=== PATIENT | female | born 1965 | race Caucasian/White ===

== ENCOUNTER 2017-10-05 13:38 | Day surgery (SDC) | payer OTHER ==
[~2017-10-05] VITALS: Ht 162.6 cm; Wt 88.5 kg
[~2017-10-05 13:38] MED LIST: EFFEXOR75 MG PO; GLUCOPHAGE500 MG PO; LEXAPRO20 MG PO; LYRICA25 MG PO; ULTRAM50 MG PO
== END 2017-10-05 14:54 | disposition home or self-care (01) ==
LOC: PAIN 13:38 → SDC 14:00 → PAIN 14:54
PROVIDERS: Anesthesiology Pain Medicine
PROC: 3E0U3NZ Introduction of Analgesics, Hypnotics, Sedatives into Joints, Percutaneous Approach (ICD-10-PCS; principal; 2017-10-05)
PROC: BQ111ZZ Fluoroscopy of Left Hip using Low Osmolar Contrast (ICD-10-PCS; principal; 2017-10-05)
PROC: 3E0U33Z Introduction of Anti-inflammatory into Joints, Percutaneous Approach (ICD-10-PCS; principal; 2017-10-05)
PROC: BQ101ZZ Fluoroscopy of Right Hip using Low Osmolar Contrast (ICD-10-PCS; principal; 2017-10-05)
DX: M16.0 Bilateral primary osteoarthritis of hip (principal); M79.7 Fibromyalgia; M46.96 Unspecified inflammatory spondylopathy, lumbar region; M17.0 Bilateral primary osteoarthritis of knee; E11.9 Type 2 diabetes mellitus without complications; F40.01 Agoraphobia with panic disorder; Z79.84 Long term (current) use of oral hypoglycemic drugs; Z79.891 Long term (current) use of opiate analgesic
CPT/HCPCS: 82948; J1030; J2250; S0020